=== PATIENT | female | born 1955 ===

== ENCOUNTER 2017-09-21 02:29 | Emergency (ER) | payer OTHER ==
[~2017-09-21] VITALS: Ht 154.9 cm; Wt 68.0 kg
[~2017-09-21 02:29] MED LIST: CELEXA10 MG; DICLOFENAC SODI50 MG PO; EXCEDRIN EXTRA1 TAB PO; TRICOR145 MG PO
[2017-09-21] MEDS ORDERED: MEDROLPACK PO (06:17)
[2017-09-21] MEDS ORDERED: PROMETH-CODEIN 65 ML PO (06:17)
[2017-09-21] MEDS ORDERED: ZITHROMAX500 MG PO (06:17)
[2017-09-21] MEDS ORDERED: VENTOLIN HFA18 GM IH (06:17)
[2017-09-21] MEDS ORDERED: FLONASE ALLERG9.9 ML NASAL (06:17)
== END 2017-09-21 06:29 ==
LOC: ER 02:29
DX: J06.9 Acute upper respiratory infection, unspecified (principal); J32.8 Other chronic sinusitis